=== PATIENT | male | born 1985 | race Hispanic/Latino ===

== ENCOUNTER 2019-07-26 21:23 | Inpatient (IN) | payer BC ==
[~2019-07-26] VITALS: Ht 177.8 cm; Wt 138.4 kg
[~2019-07-26 21:23] MED LIST: DEXAMETHASONE SOD PHOS INJ 4 MG/ML VIAL ONE; LIDOCAINE HCL 2% LOCAL INJ 5 ML SDV VIAL INJ ONE; ONDANSETRON HCL INJ 2MG/ML 2ML 2 MG/ML VIAL ONE; PROPOFOL IV EMULSION 10 MG/ML 20 ML VIAL ONE
[2019-07-26] MEDS ORDERED: IBUPROFEN 600 MG TAB PO STA (21:26)
[2019-07-26] MEDS ORDERED: HYDROCODONE/APAP 10MG-325MG TAB PO ONE (21:30)
--- NOTE | 2019-07-26 22:52 | Diagnostic Imaging Report ---
X-ray left foot 3 views X-ray left ankle 3 views. HISTORY: Pain. COMPARISON: None available. FINDINGS: Bones: Fracture fragments between the second and third metatarsal bases. Cortical contour irregularity of the articular surfaces of the 2-4 metatarsal bases. Joints: Tarsometatarsal dislocation with dorsolateral displacement of the 3-5 metatarsal heads relative to the cuneiforms. Soft tissues: Soft tissue swelling about the foot. IMPRESSION: Tarsometatarsal fracture dislocation with dorsolateral displacement of the 3-5 metatarsal heads relative to the cuneiforms, and mid metatarsal base fractures concerning for Lisfranc injury. Recommend orthopedic consultation. Signed by: Phan Hughes DO on 07/26/2019 10:49 PM
[2019-07-26] MEDS: MORPHINE SULFATE 2 MG/ML SYR 1ML IV PRN (23:45)
[2019-07-26] MEDS: ONDANSETRON HCL INJ 2MG/ML 2ML 2 MG/ML VIAL IV PRN (23:45)
[2019-07-26 23:56] LABS: BASOPHILS % 0.3 % (0.0-1.0); EOSINOPHILS # (AUTO) 0.1 (0.0-0.4); EOSINOPHILS % 0.8 % (0.0-6.0); HEMATOCRIT 46.5 % (38.2-49.6); LYMPHOCYTES # (AUTO) 2.5 (1.0-3.2); LYMPHOCYTES % 22.4 % (18.0-39.1); MEAN CORPUSCULAR HEMOGLOBIN 30.1 pg (28-32); MEAN CORPUSCULAR HGB CONC 34.4 g/dL (31-35); MEAN CORPUSCULAR VOLUME 87.6 fL (81-99); MONOCYTES # (AUTO) 1.1 (0.2-0.8); MONOCYTES % 9.5 % (4.4-11.3); NEUTROPHILS # (AUTO) 7.4 (2.1-6.9); NEUTROPHILS % 66.3 % (38.7-80.0); PLATELET COUNT 272 x10e3/uL (140-360); RED BLOOD COUNT 5.31 x10e6/uL (4.3-5.7); RED CELL DISTRIBUTION WIDTH 12.5 % (11.7-14.4)
--- OUTSIDE RECORDS SUMMARY | 2019-07-26 23:56 | XMS REPORT ---
Author [facility] Address Unknown Phone Unavailable Care Team Providers Care Continuous Conveyor Screen Drier Name Role Phone OMAR RUBIO Unavailable Unavailable Problems This patient has no known problems. Allergies, Adverse Reactions, Alerts This patient has no known allergies or adverse reactions. Medications This patient has no known medications. Results Test Description Test Time Test Comments Text Results Atomic Results Result Comments FOOT LEFT COMPLETE 2019-07-26 22:42:00 [place] [address] Patient Name: RIO TORRES MR #: [id number] : 1985 Age/Sex: 33/M Req #: [id number] Adm Physician: Ordered by: OMAR RUBIO DO Report #: [id number] Location: ER Room/Bed: Procedure: [id number] DX/FOOT LEFT COMPLETE Exam Date: Exam Time: REPORT STATUS: Signed X-ray left foot 3 views X-ray left ankle 3 views. HISTORY: Pain. COMPARISON: None available. FINDINGS: Bones: Fracture fragments between the second and third metatarsal bases. Cortical contour irregularity of the articular surfaces of the 2-4 metatarsal bases. Joints: Tarsometatarsal dislocation with dorsolateral displacement of the 3-5 metatarsal heads relative to the cuneiforms. Soft tissues: Soft tissue swelling about the foot. IMPRESSION: Tarsometatarsal fracture dislocation with dorsolateral displacement of the 3-5 metatarsal heads relative to the cuneiforms, and mid metatarsal base fractures concerning for Lisfranc injury. Recommend orthopedic consultation. Signed by: Phan Hughes DO on 07/26/2019 10:49 PM Dictated By: PHAN HUGHES DO 47 Transcribed By: EVI on 07/26/192248 COPY TO: OMAR RUBIO DO ANKLE 3+ VIEWS LEFT 2019-07-26 22:42:00 [place] [address] Patient Name: RIO TORRES MR #: [id number] : 1985 Age/Sex: 33/M Req #: [id number] Adm Physician: Ordered by: OMAR RUBIO DO Report #: [id number] Location: ER Room/Bed: Procedure: [id number] DX/ANKLE 3+ VIEWS LEFT Exam Date: Exam Time: REPORT STATUS: Signed X-ray left foot 3 views X-ray left ankle 3 views. HISTORY: Pain. COMPARISON: None available. FINDINGS: Bones: Fracture fragments between the second and third metatarsal bases. Cortical contour irregularity of the articular surfaces of the 2-4 metatarsal bases. Joints: Tarsometatarsal dislocation with dorsolateral displacement of the 3-5 metatarsal heads relative to the cuneiforms. Soft tissues: Soft tissue swelling about the foot.
[2019-07-27] VITALS (9 sets, daily range): BP systolic 124–143; BP diastolic 60–90
[2019-07-27 00:20] LABS: ALANINE AMINOTRANSFERASE 33 IU/L (0-55); ALBUMIN 3.7 g/dL (3.5-5.0); ALKALINE PHOSPHATASE 103 IU/L (40-150); ANION GAP 11.6 mmol/L (8-16); BLOOD UREA NITROGEN 15 mg/dL (7-26); BUN/CREATININE RATIO 17 (6-25); CALCIUM 9.4 mg/dL (8.4-10.2); CARBON DIOXIDE 23 mmol/L (22-29); CHLORIDE 104 mmol/L (98-107); CREATININE, SERUM 0.88 mg/dL (0.72-1.25); EST GLOMERULAR FILTRATION RATE > 60 ML/MIN (60-); GLUCOSE 99 mg/dL (74-118); POTASSIUM 3.6 mmol/L (3.5-5.1); SODIUM 135 mmol/L (136-145)
[2019-07-27] MEDS: ONDANSETRON HCL INJ 2MG/ML 2ML 2 MG/ML VIAL IV PRN ×2 (08:55→13:49)
[2019-07-27] MEDS: MORPHINE SULFATE 2 MG/ML SYR 1ML IV PRN (08:55)
[2019-07-27] MEDS: CELECOXIB 100 MG CAP PO SCH ×2 (12:13→17:07)
--- NOTE | 2019-07-27 12:25 | Diagnostic Imaging Report ---
TECHNIQUE: Computed tomography imaging of the LEFT foot was performed WITHOUT injected contrast. Dose modulation, iterative reconstruction, and/or weight based adjustment of the mA/kV was utilized to reduce the radiation dose to as low as reasonably achievable. HISTORY: Foot pain, fracture COMPARISON: None available. DISCUSSION: Lisfranc homolateral fracture dislocation with lateral subluxation/dislocation of the first through fifth metatarsals in relation to the cuneiform and cuboid bones. Multiple small fracture fragments scattered across the tarsometatarsal joints. The tendons of the foot and ankle are in normal position. Dorsal and plantar calcaneal enthesophytes with thickening of the distal Achilles tendon. No fluid collection or soft tissue mass IMPRESSION: Homolateral Lisfranc dislocation with multiple small fracture fragments at the tarsometatarsal joint. Signed by: Dr. Harpreet Camarillo M.D. on 07/28/2019 8:23 AM
[2019-07-27] MEDS: MORPHINE SULFATE INJ 4 MG/ML INJ 1ML IV PRN ×2 (13:49→19:27)
--- NOTE | 2019-07-27 14:39 | History and Physical ---
CHIEF COMPLAINT: Status post fall with left tarsometatarsal foot fractures. Swelling and pain. HISTORY OF PRESENT ILLNESS: A 33-year-old, healthy male, apparently had an accident where he was using a stool step on it and missed a step and came down, twisted his ankle. He has multiple bone fractures, tarsometatarsal fracture with dislocations. The patient having pain, some significant swelling last night. The patient is stable with pain medication. He is comfortable. PAST MEDICAL HISTORY: Noncontributory. PAST SURGICAL HISTORY: Noncontributory. SOCIAL HISTORY: The patient does not smoke or use alcohol. No regular drugs. ALLERGIES: NO KNOWN ALLERGIES. HOME MEDICATIONS: None. PHYSICAL EXAMINATION: VITAL SIGNS: Temperature is 97, blood pressure 124/74, pulse rate 72, and respirations 18. GENERAL: The patient is not in acute distress. HEENT: Normocephalic, atraumatic. Anicteric. NECK: Supple grossly. PULMONARY: Clear. CARDIOVASCULAR: Regular rhythm. ABDOMEN: Soft and unremarkable, obese. EXTREMITIES: There is no cyanosis. The left ankle swelling is tender to touch. There is no vascular compromise. There is no gross edema. No sign of infection. NEUROLOGIC: There is no neurological deficit. IMAGING DATA: X-ray showed of the left ankle, foot, tarsometatarsal fracture dislocation with also lateral displacement of the 3-5 metatarsal head relative to the cuneiform bone. There is a mid metatarsal base fractures also as well, concerning for possible Lisfranc injury. ASSESSMENT AND PLAN: 1. Status post fall with left ankle injury. Tarsometatarsal bone fractures with possible ligament injury. 2. The patient will need surgical intervention. 3. In the meantime, we will continue to manage this patient with pain medication. 4. Deep vein thrombosis prophylaxis with SCD. 5. Feed the patient. CT scan of the left ankle recommended. We will continue to monitor the patient. Pain control. Symptomatic treatment and keep the swelling down with icing as well. 6. The patient will have plan for surgery early next week. 7. Consultation with Dr. Ashlee Vega. MD VÍCTOR Crouch/DENAE /[id number]
--- NOTE | 2019-07-27 15:35 | Consultation ---
DATE OF CONSULTATION: 07/27/2019 HISTORY OF PRESENT ILLNESS: The patient was at home and fell off a step 2. He says it was only a couple of times, states the way his foot twisted, he felt a pop. He was unable to bear any weight and he came in through the emergency room secondary to pain and swelling. PAST MEDICAL HISTORY: Negative. FAMILY HISTORY: History of diabetes mellitus. 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 Denies any illicit drug use. MEDICATIONS: Please refer to MAR. Of interest to this consult are morphine and ibuprofen. REVIEW OF SYSTEMS: Noncontributory except for pain and swelling to the left foot. PHYSICAL EXAMINATION: EXTREMITIES: Pedal pulses are palpable. There is edema to the dorsal aspect of the left foot. The edema extends about the mid foot at the area of Lisfranc joint. There is adequate capillary refill. There is no pain out of proportion. Muscle mass is otherwise symmetrical. Negative Homans sign. Epicritic sensation is intact. IMAGING STUDIES: The x-ray is positive for the foot. X-ray is positive for tarsometatarsal dislocation with dorsal lateral displacement from 3 to 5 and mid metatarsal base fractures. The ankle x-ray is negative for fractures of the ankle. Again shows same thing tarsometatarsal fracture dislocations with dorsal displacement of the 3rd and 4th metatarsals. LABORATORY DATA: White blood count slightly elevated 11.1, hemoglobin 16, hematocrit 46.5. ASSESSMENT: 1. Lisfranc dislocation. 2. Edema. 3. Pain. PLAN: Discussed treatment with the patient at this point. The plan is to decrease the edema so graft surgery early Sunday or tomorrow afternoon. I suspect this surgery is probably going to go on Sunday. He will be nonweightbearing. Fracture will be applied ice and elevate. I discussed with him that his recovery is probably going to take about 2 weeks total. In the future, he could have arthritis to those joints and he is aware of this. For now, he is strictly nonweightbearing. He will ice and plan possibly to be n.p.o. Sunday night for surgery Sunday. He will have to be consented for the surgery. I have answered all questions and I will continue to follow. Thank you for letting me participate in the care of this patient. MALU Connell /[id number]
[2019-07-27] MEDS: SENNA-S TABLET PO SCH (17:07)
[2019-07-27] MEDS: FAMOTIDINE 20 MG TAB PO SCH (17:07)
[2019-07-28] VITALS (8 sets, daily range): BP systolic 116–132; BP diastolic 59–82
--- NOTE | 2019-07-28 07:00 | NUR ---
BEDSIDE ROUNDS COMPLETE NO DISTRESS NOTED UPDATED ON POC VOICED UNDERSTANDING, DENIES PAIN AT THIS TIME, EDEMA NOTED TO L FOOT, WARM TO TOUCH, PINK IN COLOR, PEDIAL PULSES PALPABLE, NO OTHER CO VOICED CALL LIGHT IN REACH WILL CONTINUE TO MONITOR
[2019-07-28] MEDS: MORPHINE SULFATE INJ 4 MG/ML INJ 1ML IV PRN ×3 (08:04→21:59)
[2019-07-28] MEDS: ONDANSETRON HCL INJ 2MG/ML 2ML 2 MG/ML VIAL IV PRN ×3 (08:05→21:59)
[2019-07-28] MEDS: CELECOXIB 100 MG CAP PO SCH ×2 (08:05→16:03)
[2019-07-28] MEDS: SENNA-S TABLET PO SCH ×2 (08:06→16:03)
[2019-07-28] MEDS: FAMOTIDINE 20 MG TAB PO SCH ×2 (08:06→16:03)
--- NOTE | 2019-07-28 15:34 | NUR ---
POLLO 2 LAYER WRAP APPLIED PER DR LOIS BRADY TO LEFT LEG FOR PRESURGICAL EDEMA CONTROL .BOOT REPLACED PATIENT TOES BLANCHABLE WITHOUT COMPLAINT OF PAIN OR DISCOMFORT DURING OR AFTER APPLICATION OF COMPRESSION Addendum: 07/28/19 at 1538 by Spenser Cesar RN Amended: Links added.
[2019-07-28 15:49] LABS: HEMATOCRIT 43.9 % (38.2-49.6); MEAN CORPUSCULAR HEMOGLOBIN 30.4 pg (28-32); MEAN CORPUSCULAR HGB CONC 34.2 g/dL (31-35); PLATELET COUNT 258 x10e3/uL (140-360); RED BLOOD COUNT 4.93 x10e6/uL (4.3-5.7); RED CELL DISTRIBUTION WIDTH 12.6 % (11.7-14.4)
[2019-07-28 16:04] LABS: ANION GAP 10.6 mmol/L (8-16); BLOOD UREA NITROGEN 16 mg/dL (7-26); BUN/CREATININE RATIO 15 (6-25); CALCIUM 9.2 mg/dL (8.4-10.2); CARBON DIOXIDE 26 mmol/L (22-29); CHLORIDE 104 mmol/L (98-107); CREATININE, SERUM 1.07 mg/dL (0.72-1.25); EST GLOMERULAR FILTRATION RATE > 60 ML/MIN (60-); GLUCOSE 103 mg/dL (74-118); POTASSIUM 3.6 mmol/L (3.5-5.1); SODIUM 137 mmol/L (136-145)
[2019-07-28] MEDS: CEFAZOLIN SOD 1 GM/NS 50ML 50 ML IV SCH (16:04)
[2019-07-28] MEDS ORDERED: SODIUM CHLORIDE 0.9% 250ML 250 ML ONE (16:10)
--- NOTE | 2019-07-28 18:17 | Progress Note ---
DATE: The patient was seen at bedside. There is minimal to moderate edema to the forefoot consistent with the injury. No streaking erythema. No ascending lymphangitis. The CT showed dorsal lateral displacement on 11/26 relative to the cuneiforms and mid metatarsal fractures consistent with a Lisfranc injury. Pedal pulses palpable. Epicritic sensation is intact. Muscle mass is symmetrical. ASSESSMENT: 1. Lisfranc's dislocation, left. 2. Edema, resolving. PLAN: Today a compression dressing will be applied to continue to decrease the edema. He will continue to ice. He has a fracture boot. He is scheduled for surgery tomorrow. He will be n.p.o. after midnight. Blood work will be obtained. He is going to start on Ancef 1 g every 8 hours, and I discussed treatment plan with the patient and he is scheduled. He will be consented tonight for surgery for the left foot. I will continue to follow. MALU Connell/DENAE /[id number]
--- NOTE | 2019-07-28 20:00 | NUR ---
Received change of shift report from AM nurse. Walking rounds completed.
[2019-07-28 21:32] LABS: ANISOCYTOSIS MODERATE; BAND NEUTROPHILS % (MANUAL) 1 %; EOSINOPHILS % (MANUAL) 1 % (0-7); LYMPHOCYTES % (MANUAL) 17 % (19-48); MONOCYTES % (MANUAL) 5 % (3.4-9.0); NEUTROPHILS % (MANUAL) 64 % (40-74); PLATELET ESTIMATE ADEQUATE; PLATELET MORPHOLOGY COMMENT NORMAL; POIKILOCYTOSIS MODERATE; RBC MORPHOLOGY COMMENT NORMAL
[2019-07-29] VITALS (7 sets, daily range): BP systolic 114–133; BP diastolic 64–91
--- NOTE | 2019-07-29 | NUR ---
Patient requested pain meds given as ordered by MD. Will f/up.
--- NOTE | 2019-07-29 06:27 | NUR ---
Patient resting quitly at this time.
--- NOTE | 2019-07-29 07:08 | NUR ---
pt awake resp even and unlabored at this time no distress noted, pt easily aroused, and able to make needs known, left leg in boot no c/o pain when asked, call light in reach.
[2019-07-29] MEDS: FAMOTIDINE 20 MG TAB PO SCH ×2 (07:30→16:37)
[2019-07-29] MEDS: CELECOXIB 100 MG CAP PO SCH ×2 (08:00→16:37)
[2019-07-29] MEDS: SENNA-S TABLET PO SCH ×2 (09:00→16:37)
--- NOTE | 2019-07-29 09:40 | NUR ---
off unit for procedure.
[2019-07-29] MEDS: CEFAZOLIN SOD 1 GM/NS 50ML 50 ML IV SCH ×3 (10:00→16:36)
[2019-07-29] MEDS ORDERED: BUPIVACAINE HCL 0.5% INJ 30 ML VIAL INJ ONE (10:29)
[2019-07-29] MEDS ORDERED: NEOSTIGMINE 1 MG/ML 10ML VIAL ONE (10:29)
[2019-07-29] MEDS ORDERED: BACITRACIN 50,000 UNIT VIAL ONE (11:50)
[2019-07-29] MEDS: MORPHINE SULFATE INJ 4 MG/ML INJ 1ML IV PRN ×2 (12:51→22:26)
[2019-07-29] MEDS: ONDANSETRON HCL INJ 2MG/ML 2ML 2 MG/ML VIAL IV PRN ×2 (12:51→22:26)
--- NOTE | 2019-07-29 13:18 | Diagnostic Imaging Report ---
EXAMINATION: FOOT LEFT COMPLETE INDICATION: Postoperative COMPARISON: Foot and ankle radiographs of 07/26/2019 FINDINGS: AP, lateral and oblique images of the left foot demonstrate postoperative findings of open reduction internal fixation of Lisfranc injury with 2 partially threaded screws. Alignment is near-anatomic. No unexpected fracture or dislocation. Overlying splint material obscures fine bony detail. IMPRESSION: Status post open reduction internal fixation of Lisfranc injury. Signed by: Shahab Guy MD on 07/29/2019 1:15 PM
--- NOTE | 2019-07-29 13:32 | Operative Report ---
DATE OF PROCEDURE: 07/29/2019 SURGEON: Ashlee Vega DPM PREOPERATIVE DIAGNOSES: 1. Lisfranc dislocation, left foot. 2. Cuneiforms and metatarsals fractures. 3. Edema. POSTOPERATIVE DIAGNOSES: 1. Lisfranc dislocation, left foot. 2. Cuneiforms and metatarsals fractures. 3. Edema. PROCEDURES: 1. Open reduction and internal fixation of Lisfranc dislocation. 2. Application of posterior splint. PATHOLOGY: None. ANESTHESIA: General anesthetic with a local block to the foot. HEMOSTASIS: None. ESTIMATED BLOOD LOSS: Less than 10 mL. MATERIALS: A 5.0 screw and a 4.0 screw. COMPLICATIONS: None. CONDITION: Stable. PROCEDURE IN DETAIL: Under mild sedation, the patient was brought to the operating room, placed on the operating table in supine position. Following IV sedation, anesthesia was obtained with a general anesthetic. At this point, the left foot scrubbed, prepped, and draped in usual aseptic manner. It was then lowered to the table. Attention was then directed to the dorsal aspect of the left foot, where under the use of intraoperative fluoroscopy and with a reduction clamp, the 1st metatarsal cuneiform and 2nd cuneiform joint was reduced with the use of intraoperative fluoroscopy. An incision was made at the medial aspect at the medial cuneiform in order to use screw fixation to Lisfranc ligament. A 5.0 screw was used. There was noted to be adequate compression clinically and with the use of intraoperative fluoroscopy and adequate alignment. The metatarsals 3, 4, and 5 were then reduced utilizing a clamp reduction. It was temporarily fixated using K-wires, then a screw was used to fixate the dislocation. This was noted to be adequate alignment, had a good compression clinically with the use of intraoperative fluoroscopy. All incisions were then flushed with copious amount of normal sterile saline solution. The incisions were then closed, closing with 3-0 Vicryl and 4-0 nylon. Clean dressing was applied consisting of Xeroform, 4x4s, Kerlix, Webril, posterior splint was applied, and was secured utilizing an Harsha bandage. The patient tolerated the procedure and anesthesia well without complications, was transported to recovery room with vital signs stable and vascular status intact to both feet. The patient will be re-admitted back into the hospital. He will probably be discharged tomorrow once his pain is controlled overnight. He will follow up with me in the office. He will be strictly nonweightbearing. He will ice and elevate the foot. He will call the office if any questions, concerns, or new problems arise. MALU Connell/DENAE /[id number]
--- NOTE | 2019-07-29 14:30 | NUR ---
pt return to unit, resp even and unlabored, pt awake, no c/o pAIN AT THIS TIME.
--- NOTE | 2019-07-29 16:35 | NUR ---
Patient had an ORIF on left foot for Lisfranc fracture today. Will need new PT evaluate and treat orders with weight bearing status to resume therapy. Discussed with RN need for orders. Will monitor patient. Addendum: 07/29/19 at 1638 by ELODIA NICOLE PT Amended: Links added.
--- NOTE | 2019-07-29 19:00 | NUR ---
RECEIVED PATIENT IN BEDSIDE SHIFT REPORT. A&OX3. PAIN REPORTED 01/01. NO S&S OF DISTRESS NOTED. PATIENT CAN SLIGHTLY WIGGLE TOES IN SPLINT, CAP REFILL TO LLE IS BRISK, <3 SECONDS. BED LOCKED IN LOWEST POSITION, SIDE RAILS UPX2, CALL LIGHT IN REACH.
--- NOTE | 2019-07-29 19:26 | NUR ---
report given to oncoming nurse. pt stable at this time.
[2019-07-29] MEDS ORDERED: MORPHINE SULFATE INJ 10 MG/ML ONE (19:58)
[2019-07-29] MEDS ORDERED: FENTANYL CITRATE/PF 100MCG/2 ML INJ ONE (19:58)
[2019-07-29] MEDS ORDERED: MIDAZOLAM HCL 2 MG/2 ML VIAL ONE (19:58)
[2019-07-29] MEDS: ENOXAPARIN SOD INJ 40 MG/0.4 ML SYR SC SCH (21:05)
[2019-07-30] VITALS: BP 115/55
[2019-07-30] MEDS: CEFAZOLIN SOD 1 GM/NS 50ML 50 ML IV SCH ×2 (00:38→08:29)
[2019-07-30 04:00] VITALS: BP 107/58
--- NOTE | 2019-07-30 07:38 | NUR ---
Rcvd patient in report this am. Patient is asleep in bed at this time. No s/s of distress noted
[2019-07-30 07:58] VITALS: BP 129/71
[2019-07-30] MEDS: FAMOTIDINE 20 MG TAB PO SCH (08:29)
[2019-07-30] MEDS: SENNA-S TABLET PO SCH (08:29)
[2019-07-30] MEDS: CELECOXIB 100 MG CAP PO SCH (08:29)
[2019-07-30] MEDS: MORPHINE SULFATE INJ 4 MG/ML INJ 1ML IV PRN (08:30)
[2019-07-30] MEDS: ONDANSETRON HCL INJ 2MG/ML 2ML 2 MG/ML VIAL IV PRN (08:30)
[2019-07-30 08:46] VITALS: BP 129/71
[2019-07-30] MEDS ORDERED: NORCO 10-325 T1 EACH PO (09:31)
[2019-07-30] MEDS ORDERED: SENNOSIDES8.6 MG PO (09:35)
[2019-07-30] MEDS ORDERED: CELEBREX100 MG PO (09:35)
--- NOTE | 2019-07-30 09:45 | NUR ---
Patient is AAox3. Post op ORIF left foot. Dressing clean and dry. Patient able to wiggle toes and feel the touch. NO s/s of distress noted. Lung cazares clear to auscultation. Bowel sounds present x4. Trace edema noted to left foot. Patient is NWB to left foot. Instructed patient on how to give himself lovenox as well as written education provided.
--- NOTE | 2019-07-30 10:09 | NUR ---
Removed IV from left AC at this time. Pressure dressing applied.
[2019-07-30] MEDS: ENOXAPARIN SOD INJ 40 MG/0.4 ML SYR SC SCH (10:13)
--- NOTE | 2019-07-30 10:16 | Progress Note ---
DATE: 07/30/2019 SUBJECTIVE: The patient was seen at bedside. Dressing is intact. He has good capillary refill. His pain is being well controlled. He has a negative Homans sign. On x-ray, status post reduction x-ray shows open reduction with internal fixation of a Lisfranc injury with two partially-threaded screws cross tie turner near anatomical alignment. ASSESSMENT: 1. Status post open reduction and internal fixation Lisfranc dislocation. 2. Edema, resolving. 3. Pain control. PLAN: At this point, from my standpoint, he could go home. He is going to follow up outpatient. He will follow up in my office on Sunday. He will need hydrocodone for pain. He could sampler pickup the triplicate in my office. He will be strictly nonweightbearing. He knows this. He will keep the dressing clean, dry, and intact. He will call the office if any questions, concerns, or new problems arise. He will go home on Lovenox for DVT prophylaxis for the next 14 days secondary to surgery and immobilization. MALU Connell/DENAE /[id number]
--- NOTE | 2019-07-30 10:20 | NUR ---
Patient discharged from facility to home. Patient assisted out via staff. Reviewed all discharge paperwork, follow up appts and RX's given. Lovenox was called into the pharmacy per dr. nicolas.
--- NOTE | 2019-07-31 05:49 | Discharge Summary ---
RISK AND INSURANCE MANAGER: Dr. Ashlee Vega, Podiatry. FINAL DIAGNOSES: 1. Lisfranc dislocation and fractures. The patient is status post ORIF of the Lisfranc dislocation repair of the left foot. 2. Intractable left foot pain, a swelling much improved. 3. Status post fall off the ladder. HOSPITAL COURSE: A 33-year-old male fall off the ladder, twisted his left ankle, suffered a multiple tarsometatarsal fractures with ligaments injury, Lisfranc injury. The patient was admitted for pain control. He has also routine physical therapy as the training. The patient status post surgery on July 29, 2019, done by Dr. Vega. The patient is stable. He will go home today. Pain medication be given. Dressing intact. Physical therapy. Instruction for weightbearing per Podiatry. The patient to follow up with Dr. Vega on Sunday for dressing changes and further management. The patient will discharge home today. MD VÍCTOR Crouch/DENAE /[id number]
== END 2019-07-30 10:17 | disposition home or self-care (01) | DRG 505 ==
LOC: ER 21:23 → ERHOLD 23:53 → MED/SURG 07-27 00:57
PROVIDERS: ADMIT Internal Medicine; ATTEND Internal Medicine
PROC: 0QSM34Z Reposition Left Tarsal with Internal Fixation Device, Percutaneous Approach (ICD-10-PCS; 2019-07-29)
PROC: 0QSP34Z Reposition Left Metatarsal with Internal Fixation Device, Percutaneous Approach (ICD-10-PCS; 2019-07-29)
PROC: 0QSP34Z Reposition Left Metatarsal with Internal Fixation Device, Percutaneous Approach (ICD-10-PCS; 2019-07-29)
PROC: 0QSP34Z Reposition Left Metatarsal with Internal Fixation Device, Percutaneous Approach (ICD-10-PCS; 2019-07-29)
PROC: 0QSM34Z Reposition Left Tarsal with Internal Fixation Device, Percutaneous Approach (ICD-10-PCS; principal; 2019-07-29 10:00)
DX: S93.325A Dislocation of tarsometatarsal joint of left foot, initial encounter (principal); S92.222A Displaced fracture of lateral cuneiform of left foot, initial encounter for closed fracture; W18.31XA Fall on same level due to stepping on an object, initial encounter; R60.9 Edema, unspecified; S92.332A Displaced fracture of third metatarsal bone, left foot, initial encounter for closed fracture; S92.342A Displaced fracture of fourth metatarsal bone, left foot, initial encounter for closed fracture; S92.352A Displaced fracture of fifth metatarsal bone, left foot, initial encounter for closed fracture; E11.9 Type 2 diabetes mellitus without complications
CPT/HCPCS: 29581; 36415; 80048; 80053; 85007; 85025; 85027; 96374; 97139; 99284; J0690; J1100; J1650; J2001; J2250; J2270; J2405; J2710; J3010; J7050